=== PATIENT | female | born 1960 | race Caucasian/White ===

== ENCOUNTER 2022-01-01 19:15 | Emergency (ER) | payer OTHER, SELFPAY ==
[2022-01-01 19:29] VITALS: BP 131/78; PULSE 88; O2SAT 97
[2022-01-01 19:31] VITALS: BP 131/78; PULSE 94; RESP 18; TEMP 36.3; O2SAT 97; BMI 14.8
--- NOTE | 2022-01-01 19:39 | ED.GENADULT ---
HPI - General Adult General Stated complaint: syncopal Time Seen by Provider: 01/01/22 19:38 Source: EMS Mode of arrival: EMS Limitations: altered mental status History of Present Illness HPI narrative: Patient comes to the emergency room from a [facility] facility. Patient was discharged today from [facility]. Patient was therefore a UTI, completed her course of antibiotics yesterday. Today, when patient was at her new [facility] facility, patient had an absent seizure. Patient did not fall to the ground, did not have tonic clonic seizure. On arrival to the emergency room, patient is at baseline, and noncompliant, refusing treatment. Patient was placed on hospice today. Patient unable to give any history, patient is awake and alert but cannot give any history, yelling that she wants water. Related Data Allergies Allergy/AdvReac Type Severity Reaction Status Date / Time No Known Allergies Allergy Verified 01/01/22 19:39 Review of Systems Review of Systems: Yes Unobtainable due to mental condition PMFSH Past Medical History Medical History (Updated 01/01/22 @ 19:46 by Celina Ron MD) Anxiety Atrial fibrillation COPD (chronic obstructive pulmonary disease) End stage renal disease Hypertension Pulmonary air embolism Social History Social History Patient : No Physical Exam ED Const Other: Appearance: Alert. Oriented X1 arguing with everybody Eyes: Pupils equal, round and reactive to light. ENT: Pharynx normal. Neck: Normal inspection. Neck supple. No lymph nodes noted. No crepitus CVS: Normal heart rate and rhythm. Pulses normal. Normal S1 and S2 Respiratory: No respiratory distress. Breath sounds normal. No Wheezing. No rales Abdomen: Soft and nontender. No rigidity. No distention. Skin: Skin warm and dry. Normal skin color. Normal skin turgor. Extremities: No lower extremity edema. No Lacerations. No Rash Neuro: Moves all extremities, no slurred speech, cranial nerves 2-12 grossly intact, steadily ambulating Psych: Arguing with staff Course Course Course Narrative: Patient has not had any seizure-like activity in the emergency room. Patient was given an additional dose of Keppra in the emergency room. Patient is on hospice for end-stage renal disease and noncompliance. Patient is uncooperative, does not want any blood work, given that the patient is in hospice we will not obtain blood work. Discharge Plan Discharge Clinical Impression: Seizure Patient Disposition: Home, Self-Care Additional Instructions: Please follow-up with your primary care physician tomorrow. If you have any worsening or new symptoms, please return to the emergency room or call 911
[2022-01-01] MEDS: levETIRAcetam 500 MG TABLET PO (20:08)
--- NOTE | 2022-01-01 20:08 | PC.NURSE ---
pt very aggressive, throwing anything she can get her hands on to the floor, pt asking for water and when given threw it at the this rn. security at bedside due to pt getting oob to try to throw more items, room cleaned for any thing she can get her hands on. pt oob and tried to state that staff is assaulting her which is not the case. pt has periods of star and then snapps out of it. pt medicated with keppra po in pudding.
[2022-01-01 21:19] VITALS: BP 156/82; PULSE 92; RESP 16; O2SAT 99
--- NOTE | 2022-01-01 21:39 | PC.NURSE ---
waiting for transport. pt still being demanding and if needs not met in seconds then pt starts to throw water, and anything she can get her hands on. transport approx 0
--- NOTE | 2022-01-01 22:45 | PC.NURSE ---
pt ambulated to the bathroom with staff. pt has her hand to her eyes for a headache.
--- NOTE | 2022-01-01 22:50 | PC.NURSE ---
RN IS AWARE OF PATIENT REFUSAL TO HAVE 2200 VITALS TAKEN ,PATIENT WAS ASSISTED TO THE BATHROOM TIMES 2,PATIENT HAD 2 CUPS OF WATER TO DRINK
[2022-01-01] MEDS: Acetaminophen 325 MG TABLET 650 MG PO (23:38)
[2022-01-02] VITALS: PULSE 90; RESP 16
--- NOTE | 2022-01-02 00:17 | PC.NURSE ---
pt is sleeping, treated for a headache, no seizure activity, pt cooperative now and not throwing things around if needs are not met.
[2022-01-02 01:33] VITALS: RESP 16
--- NOTE | 2022-01-02 02:55 | PC.NURSE ---
pt has been sleeping, food and beverage given, no seizure activity, pt alert and oriented x3
== END 2022-01-02 02:46 | disposition home or self-care (01) ==
LOC: HO.ED 20:03
PROVIDERS: Emergency Provider Emergency Medicine; PCP Physician Assistant Medical
DX: R55 Syncope and collapse (principal)
CPT/HCPCS: 99283; 99284

== ENCOUNTER 2022-01-02 19:15 | Emergency (ER) | payer OTHER, SELFPAY ==
--- NOTE | ~2022-01-02 | CT_ITS ---
EXAMINATION: CT CERVICAL SPINE WITHOUT CONTRAST CLINICAL INFORMATION: Status post fall, neck trauma COMPARISON: None TECHNIQUE: This CT examination was performed using dose optimization techniques as appropriate, variously including the following: *Automated exposure control *Adjustment of mA and/or kV according to patient size (this includes techniques or standardized protocols for targeted exams where dose is matched to indication/reason for exam; i.e. extremities or head) *Use of iterative reconstruction technique DLP: 233.45 mGy-cm FINDINGS: There is no evidence of fracture or subluxations. There are multilevel degenerative changes of cervical spine with narrowing of C4-C5 intervertebral disc space there is no spinal canal stenosis. Soft tissues are unremarkable. There are emphysematous changes in the apices with bullous disease on the right CT/CT cervical spine wo con IMPRESSION: Mild multilevel degenerative changes no fracture or subluxation seen. Fleischner guidelines were followed.
--- NOTE | ~2022-01-02 | CT_ITS ---
EXAMINATION: CT HEAD WITHOUT CONTRAST CLINICAL INFORMATION: 61-year-old female with head trauma COMPARISON: None TECHNIQUE: Contiguous axial imaging was performed from the skull base to vertex without intravenous administration of contrast. This CT examination was performed using dose optimization techniques as appropriate, variously including the following: *Automated exposure control *Adjustment of mA and/or kV according to patient size (this includes techniques or standardized protocols for targeted exams where dose is matched to indication/reason for exam; i.e. extremities or head) *Use of iterative reconstruction technique DLP: 629.17 mGy-cm FINDINGS: There is no evidence of acute intracranial hemorrhage or territorial infarction. No abnormal mass effect or midline shift is seen ventricles and sulci are prominent there is patchy hypodensity surrounding the dilated occipital horn on the right as well as area of calcification in the periventricular white matter. There is no fracture or sinus disease. CT/CT head/brain wo con IMPRESSION: Atrophy and extra-axial dilatation of right occipital horn surrounded by hypodensity is of encephalomalacia. Unclear origin calcification most likely dystrophic in the periventricular white matter. If clinically indicated there are no comparison studies available follow-up by MRI
[2022-01-02 19:33] VITALS: PULSE 85; RESP 22; TEMP 37.1; O2SAT 100; BMI 17.2
[2022-01-02 19:46] VITALS: BP 103/53; PULSE 85; RESP 23; O2SAT 98
--- NOTE | 2022-01-02 20:03 | ED_ITS ---
HPI - Seizure General Chief Complaint: Seizure Stated Complaint: ?Seizure Time Seen by Provider: 01/02/22 23:25 Source: patient and EMS Mode of arrival: EMS Limitations: other History of Present Illness HPI Narrative: 61-year-old female presents via EMS from a [facility] facility after seizure activity and falling at bed. Patient was given Versed on transit for seizure activity. Patient presents in a C-collar. complaint: seizure Onset (ago): hour(s) (Within the hour of arrival) Description of Episode: tonic-clonic movement Witnessed: Yes - by EMS Trauma: Yes Seizure History: Yes Place: longterm facility Possible Precipitating Event: none Associated symptoms: denies other symptoms Treatments prior to arrival: benzodiazepines Related Data Previous Rx's Medication Instructions Recorded cefuroxime axetil 500 mg tablet 500 mg PO Q12H 7 Days #14 tab 01/02/22 Allergies Allergy/AdvReac Type Severity Reaction Status Date / Time No Known Allergies Allergy Verified 01/01/22 19:39 Review of Systems Review of Systems: Constitutional: No Fever, No Chills ENT/Mouth: No Ear Pain, No Hoarseness, No sore throat Eyes: No Eye Pain, No Swelling, No Redness, No Foreign Body Cardiovascular: No Chest Pain, No SOB Respiratory: No Cough, No Dyspnea Gastrointestinal: No Nausea, No Vomiting, No Diarrhea, No abdominal Pain Genitourinary: No Dysuria, No Hematuria Musculoskeletal: No joint pain, No Myalgias, No Joint Swelling Skin: No Skin lacerations, No rash Neuro: Positive seizure activity, No Weakness, No Numbness, No Paresthesias, No Loss of Consciousness, No Dizziness, No Headache Psych: No Anxiety/Panic, No Depression Heme/Lymph: no easy bruising, no Lymphadenopathy Endocrine: No Polyuria, No Polydipsia Yes all other systems are reviewed and are negative [facility] Past Medical History Attestation statement: The following information was validated with the patient. Source: old records reviewed Medical History Anxiety Atrial fibrillation COPD (chronic obstructive pulmonary disease) End stage renal disease Hypertension Pulmonary air embolism Social History Social History Advance Directives: No Physical Exam Vital Signs: Vital Signs: Last Vital Signs Temp 98.7 F 01/02/22 19:33 Pulse 85 01/02/22 21:11 Resp 21 H 01/02/22 21:11 BP 118/60 01/02/22 21:11 Pulse Ox 100 01/02/22 21:11 BMI result Body Mass Index 17.2 Appearance: Alert. Oriented to self. Requires constant redirection. No acute distress. Able to follow commands that are simple. Eyes: Pupils equal, round and reactive to light. ENT: Pharynx normal. Neck: Normal inspection. Neck supple. CVS: Normal heart rate and rhythm. Pulses normal. Respiratory: No respiratory distress. Breath sounds normal. Abdomen: Soft and nontender. Skin: Skin warm and dry. Normal skin color. Normal skin turgor. Extremities: No lower extremity edema. Moves all extremities. Gait not assessed for safety. Neuro: No motor deficit. No sensory deficit. Cranial nerves 2-12 intact. Course Course Course Narrative: 61-year-old female presents via EMS for injury sustained from a fall after seizure activity. Patient is belligerent, stating that she does not want any tests done. She is on hospice, and was evaluated at this facility yesterday for similar circumstances. Patient has agreed to CT scan of head and neck but declines labs and urinalysis. Patient's wishes were respected. 21:24 CT scan is negative for acute findings requiring emergent intervention. Plan is care is to discharge back to snf facility. 23:34 we were able to obtain a urine. Urinalysis is positive. Discussion with facility, patient is not on any antibiotics even though there is a documented UTI from [facility] approximately 2 days ago. Will treat that with cefuroxime 500 mg twice a day for the next 7 days. MDM - Seizure MDM Narrative Medical decision making narrative: UTI Differential Diagnosis Differential diagnosis: Likely focal seizure and epileptic seizure Medical Records Attestation: I reviewed the patient's medical records. Lab Data Labs: Lab Results 01/02/22 Range/Units 22:40 Urine Color YELLOW Urine Appearance HAZY Urine pH 6.0 (5.0-8.0) Ur Specific [place] 1.010 (1.005-1.025) Urine Protein 1+ H (NEG-TRACE) MG/DL Urine Glucose (UA) NEG (NEG) MG/DL Urine Ketones NEG (NEG) MG/DL Urine Blood TRACE (NEG) Urine Nitrite NEG (NEG) Ur Leukocyte Esterase 2+ H (NEG) Urine RBC 1-4 (0) /HPF Urine WBC 30-49 H (0-4) /HPF Urine WBC Clumps NOTED Ur Squamous Epith Cells TRACE /LPF Urine Bacteria 4+ /LPF Urine Mucus TRACE /LPF Imaging Data CT head neck: Attestation: I personally reviewed and interpreted this imaging study as follows: Radiologist's impression: DLP: 629.17 mGy-cm FINDINGS: There is no evidence of acute intracranial hemorrhage or territorial infarction. No abnormal mass effect or midline shift is seen ventricles and sulci are prominent there is patchy hypodensity surrounding the dilated occipital horn on the right as well as area of calcification in the periventricular white matter. There is no fracture or sinus disease. CT/CT head/brain wo con IMPRESSION: Atrophy and extra-axial dilatation of right occipital horn surrounded by hypodensity is of encephalomalacia. Unclear origin calcification most likely dystrophic in the periventricular white matter. If clinically indicated there are no comparison studies available follow-up by MRI FINDINGS: There is no evidence of fracture or subluxations. There are multilevel degenerative changes of cervical spine with narrowing of C4-C5 intervertebral disc space there is no spinal canal stenosis. Soft tissues are unremarkable. There are emphysematous changes in the apices with bullous disease on the right CT/CT cervical spine wo con IMPRESSION: Mild multilevel degenerative changes no fracture or subluxation seen.? ? Fleischner guidelines were followed. Discharge Plan Discharge Clinical Impression: Seizure, Fall, UTI (urinary tract infection) Patient Disposition: Xfer SNF Transfer Details: [facility] Additional Instructions: You were evaluated for seizure activity and fall. CT scan of head and cervical spine are negative for acute findings requiring emergent intervention. Please take your medications as directed. Urinalysis positive for UTI. Please take cefuroxime 500 mg every 12 hours for the next 7 days. Thank you for choosing this emergency department for evaluation. Please follow-up with primary care physician as needed. Return to the emergency department for any new, concerning, or worsening symptoms. Prescriptions: New cefuroxime axetil 500 mg tablet 500 mg PO Q12H 7 Days Qty: 14 0RF
--- NOTE | 2022-01-02 20:28 | PC.NURSE ---
Patient A&OX3, calm and cooperative. VSS. Awaiting CT results. C-collar remains in place.
[2022-01-02 21:11] VITALS: BP 118/60; PULSE 85; RESP 21; O2SAT 100
--- NOTE | 2022-01-02 21:15 | PC.NURSE ---
Per ana Fletchre to remove xiang voss. VSS
--- NOTE | 2022-01-02 22:22 | PC.NURSE ---
Patient discharged per MD order, awaiting ambulance transport back to [facility]. Report given to ANKIT Abraham at [place]. Patient VSS
[2022-01-02 22:46] LABS: Appearance Urine HAZY; Color Urine YELLOW; Glucose Urine UA NEG (NEG); Leukocyte Esterase Urine 2+ (NEG); Nitrite Urine NEG (NEG); UACC Culture Trigger YES; Urine Blood TRACE (NEG); Urine Ketones NEG (NEG); Urine Protein 1+ MG/DL (NEG-TRACE)
[2022-01-02 22:52] LABS: Bacteria Urine 4+ /LPF; Mucus Urine TRACE /LPF; Squamous Epithelial Cell Urine TRACE /LPF; WBC Clumps Urine NOTED; WBC Urine 30-49 /HPF (0-4)
[2022-01-02 23:38] VITALS: BP 118/85; PULSE 63; RESP 16; TEMP 36.6; O2SAT 98
[2022-01-02] MEDS: LORazepam 1 MG TABLET PO (23:41)
[2022-01-03 00:34] VITALS: PULSE 62; RESP 14; O2SAT 95
[2022-01-03 01:43] VITALS: BP 133/70; PULSE 96; RESP 20; TEMP 36.6; O2SAT 95
--- NOTE | 2022-01-03 02:05 | PC.NURSE ---
Patient discharged, on EMS stretcher. Per EMS, patient's jaw shaking and patient not answering questions, concerns for possible seizure activity. EMS states lasted 1 minute at 01:47 am. Patient back to baseline status and Justine Gómez NP notified. No new meds at this time. Ok to discharge back to facility.
== END 2022-01-03 01:45 | disposition skilled nursing facility (03) ==
PROVIDERS: Nurse Practitioner Family; Emergency Provider Emergency Medicine Emergency Medical Services; PCP Internal Medicine
DX: R56.9 Unspecified convulsions (principal); N39.0 Urinary tract infection, site not specified; I12.0 Hypertensive chronic kidney disease with stage 5 chronic kidney disease or end stage renal disease; N18.6 End stage renal disease; J44.9 Chronic obstructive pulmonary disease, unspecified; I48.91 Unspecified atrial fibrillation; Z86.711 Personal history of pulmonary embolism; Z91.81 History of falling
CPT/HCPCS: 70450; 72125; 81001; 87086; 87088; 87186; 99284; 99285

== ENCOUNTER 2022-01-03 21:42 | Emergency (ER) | payer OTHER, SELFPAY ==
--- NOTE | ~2022-01-03 | CT_ITS ---
EXAMINATION: CT HEAD WITHOUT CONTRAST CLINICAL INFORMATION: Recurrent frequent seizures. COMPARISON: 01/02/2022 TECHNIQUE: Contiguous axial imaging was performed from the skull base to vertex without intravenous administration of contrast. This CT examination was performed using dose optimization techniques as appropriate, variously including the following: *Automated exposure control *Adjustment of mA and/or kV according to patient size (this includes techniques or standardized protocols for targeted exams where dose is matched to indication/reason for exam; i.e. extremities or head) *Use of iterative reconstruction technique DLP: 863 mGy-cm FINDINGS: There is no evidence of acute intracranial hemorrhage or territorial infarction. No abnormal mass effect or midline shift is seen. [place] to white matter differentiation is well preserved. No extra-axial fluid collections are identified. The ventricles are normal in size. Stable regions of encephalomalacia within the right posterior temporal, right parietal and right occipital lobe with associated gliosis and coarse calcification adjacent to the ventricular atrium suspected to be dystrophic in nature. Lack of associated mass effect makes the possibility of an underlying mass unlikely. Extensive patchy subcortical and periventricular white matter low-attenuation changes redemonstrated statistically related to chronic white matter small vessel ischemic disease. Chronic appearing bilateral gangliocapsular lacunar infarcts redemonstrated as well. The osseous structures and soft tissues are normal. The mastoid air cells and visualized portions of the paranasal sinuses are well aerated. CT/CT head/brain wo con IMPRESSION: * No acute intracranial pathology. 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
--- NOTE | 2022-01-03 21:58 | ED_ITS ---
HPI - Seizure General Chief Complaint: Seizure <Jsutine Robert NP - Last Filed: 01/04/22 01:45> Stated Complaint: seizure <Justine Robert NP - Last Filed: 01/04/22 01:45> Time Seen by Provider: 01/04/22 04:58 <Justine Robert NP - Last Filed: 01/04/22 01:45> Source: patient and EMS <Justine Robert NP - Last Filed: 01/04/22 01:45> Mode of arrival: EMS <Justine Robert NP - Last Filed: 01/04/22 01:45> History of Present Illness HPI Narrative: 61-year-old female presents via EMS for seizure activity. Nurse at intermediate facility stated that she is unable to get medications into her and would like us to give her IV Keppra or IV doxycycline. <Justine Robert NP - Last Filed: 01/04/22 01:45> MD complaint: seizure <Justine Robert NP - Last Filed: 01/04/22 01:45> Description of Episode: tonic-clonic movement <Justine Robert NP - Last Filed: 01/04/22 01:45> Witnessed: Yes - by Bystander <Justine Robert NP - Last Filed: 01/04/22 01:45> Trauma: No <Justine Robert NP - Last Filed: 01/04/22 01:45> Seizure History: Yes <Justine Robert NP - Last Filed: 01/04/22 01:45> Place: long-term facility <Justine Robert NP - Last Filed: 01/04/22 01:45> Possible Precipitating Event: none <Justine Robert NP - Last Filed: 01/04/22 01:45> Associated symptoms: denies other symptoms <Justine Robert NP - Last Filed: 01/04/22 01:45> Treatments prior to arrival: none <Justine Robert NP - Last Filed: 01/04/22 01:45> Related Data Home Medications: Previous Rx's Medication Instructions Recorded cefuroxime axetil 500 mg tablet 500 mg PO Q12H 7 Days #14 tab 01/02/22 <Justine Robert NP - Last Filed: 01/04/22 01:45> Allergies/Adverse Reactions: Allergies Allergy/AdvReac Type Severity Reaction Status Date / Time No Known Allergies Allergy Verified 01/01/22 19:39 <Justine Robert NP - Last Filed: 01/04/22 01:45> Review of Systems Review of Systems: Constitutional: No Fever, No Chills ENT/Mouth: No Ear Pain, No Hoarseness, No sore throat Eyes: No Eye Pain, No Swelling, No Redness, No Foreign Body Cardiovascular: No Chest Pain, No SOB Respiratory: No Cough, No Dyspnea Gastrointestinal: No Nausea, No Vomiting, No Diarrhea, No abdominal Pain Genitourinary: No Dysuria, No Hematuria Musculoskeletal: No joint pain, No Myalgias, No Joint Swelling Skin: No Skin lacerations, No rash Neuro: No Weakness, No Numbness, No Paresthesias, No Loss of Consciousness, No Dizziness, No Headache Psych: No Anxiety/Panic, No Depression Heme/Lymph: no easy bruising, no Lymphadenopathy Endocrine: No Polyuria, No Polydipsia <Justine Robert NP - Last Filed: 01/04/22 01:45> Yes all other systems are reviewed and are negative <Justine Robert NP - Last Filed: 01/04/22 01:45> PMF Past Medical History Attestation statement: The following information was validated with the patient. <NAREN Coats Last Filed: 01/04/22 01:45> Source: old records reviewed <Justine Robert NP - Last Filed: 01/04/22 01:45> Medical History: Medical History Anxiety Atrial fibrillation COPD (chronic obstructive pulmonary disease) End stage renal disease Hypertension Pulmonary air embolism <NAREN Coats Last Filed: 01/04/22 01:45> Social History Social History: Social History Alcohol intake: never Patient Tobacco Use Status: Never used Tobacco Use of substances other than those prescribed or required for medical reasons: No Advance Directives: No Advance Directives Information Provided: No Patient : No <Justine Robert NP - Last Filed: 01/04/22 01:45> Physical Exam Vital Signs: Vital Signs: Last Vital Signs Temp 98.3 F 01/03/22 22:29 Pulse 94 01/04/22 05:12 Resp 16 01/04/22 05:12 BP 131/70 01/04/22 05:12 Pulse Ox 98 01/04/22 05:12 BMI result Body Mass Index 44.0 <Justine Robert NP - Last Filed: 01/04/22 01:45> Vital Signs: Last Vital Signs Temp 98.3 F 01/03/22 22:29 Pulse 94 01/04/22 05:12 Resp 16 01/04/22 05:12 BP 131/70 01/04/22 05:12 Pulse Ox 98 01/04/22 05:12 BMI result Body Mass Index 44.0 <Patricia Sanchez MD - Last Filed: 01/04/22 06:54> Appearance: Alert. Oriented. No acute distress. Eyes: Pupils equal, round and reactive to light. ENT: Pharynx normal. Neck: Normal inspection. Neck supple. CVS: Normal heart rate and rhythm. Pulses normal. Respiratory: No respiratory distress. Breath sounds normal. Abdomen: Soft and nontender. Skin: Skin warm and dry. Normal skin color. Normal skin turgor. Extremities: No lower extremity edema. Moves all extremities. Neuro: No motor deficit. No sensory deficit. No focal neural deficits. <Justine Robert NP - Last Filed: 01/04/22 01:45> Course Course Course Narrative: 61-year-old female presents via EMS to this facility for seizure activity. This is the 3rd presentation in 3 days for similar circumstances. Multiple discussions with the RNs at her facility states that they were unable to give her medications due to noncompliance as well as seizure activity. They are requesting that we give her IV medications. Discussion regarding appropriate use of the ED and level of care that is provided at the facility that she r esides at. This [employer] evaluated patient yesterday for seizure disorder and fall. Had a negative CT scan. Urinalysis was positive for UTI in which I prescribed cefuroxime 500 mg twice a day. The facility that she resides that stated that they were unable to give her any medications today. Patient took her medications last night at this facility by mouth without any difficulty. This [employer] was present during medication administration last night, 01/02/2022. Unfortunately, we are unable to get an ambulance to transport this patient back to her facility until 09:00 on 01/04/2022. We will give ceftriaxone IV for her UTI and Keppra IV. Patient is not having any seizure activity. Patient is resting comfortably, even unlabored respirations, and is compliant with care at this time. Plan of care is to discharge to intermediate facility in the morning. <uJstine Robert NP - Last Filed: 01/04/22 01:45> Reevaluation(s) Reevaluation #1: Patient continue with this several episodes seizures, so decision was made to repeat this CT of the head as well as obtaining basic lab work. In patient's history she is noted to refuse dialysis, refused lab work, and refuse medications. She agreed to low lab work here and she has received a total of 2 mg of Ativan with complete resolution of her seizures. During her stay she did receive antibiotics as well as her anti seizure medication which I suspect is likely subtherapeutic. No further intervention is indicated at this time and all lab work was reviewed and is consistent with patient refusing medical treatment for her underlying conditions. She remains clinically stable for discharge back to the long-term care facility and should receive her medications if at all possible. <Patricia Sanchez MD - L ast Filed: 01/04/22 06:54> Time: 06:51 <Patricia Sanchez MD - Last Filed: 01/04/22 06:54> MDM - Seizure Differential Diagnosis Differential diagnosis: Likely generalized seizure <Justine Robert NP - Last Filed: 01/04/22 01:45> Medical Records Attestation: I reviewed the patient's medical records. <Justine Robert NP - Last Filed: 01/04/22 01:45> Lab Data Result diagrams: : 01/04/22 06:24 01/04/22 06:24 <Justine Robert NP - Last Filed: 01/04/22 01:45> Labs: Lab Results 01/04/22 01/04/22 Range/Units 06:24 06:24 WBC 5.5 (4.8-10.8) X10*3/uL RBC 2.84 L (4.20-5.50) X10*6/uL Hgb 9.4 L (12.0-16.0) g/dl Hct 30.2 L (37.0-47.0) % MCV 106.3 H (80.0-98.0) fL MCH 33.1 H (27.0-33.0) pg MCHC 31.1 (31.0-35.0) g/dl RDW 14.6 (11.0-16.0) % Plt Count 137 L (160-400) X10*3/uL MPV 9.2 L (9.4-12.3) fL Immature Gran % (Auto) 0.2 (0.0-0.4) % Neut % (Auto) 58.6 (45-73) % Lymph % (Auto) 23.0 (20-40) % [place] % (Auto) 14.6 H (2-11) % Eos % (Auto) 2.7 (0-4) % Baso % (Auto) 0.9 (0-2) % Lymph # (Auto) 1.3 (1.2-4.9) X10*3/uL [place] # (Auto) 0.8 (0.1-1.2) X10*3/uL Eos # (Auto) 0.2 (0.0-0.4) X10*3/uL Baso # (Auto) 0.1 (0.0-0.2) X10*3/uL Abs Immat Gran (auto) 0.01 (0.00-0.03) X10*3/uL Absolute Neuts (auto) 3.2 (2.0-8.3) x10*3/uL Absolute Nucleated RBC 0.000 (0.0-0.012) X10*3/uL Nucleated RBC % (auto) 0.0 (0.0-0.2) /100WBC Sodium 138 (135-145) mmol/L Potassium 4.6 (3.3-5.1) mmol/L Chloride 113 H (96-108) mmol/L Carbon Dioxide 15 L (22-29) mmol/L Anion Gap 15 (12-20) BUN 52 H (9-16) mg/dL Creatinine 3.54 H (0.5-1.4) mg/dL Estim Creat Clear Calc 21.3 Estimated GFR 13 Random Glucose 84 (60-115) mg/dL Calcium 8.9 (8.4-10.2) mg/dL Total Bilirubin 0.4 (0.0-1.0) mg/dL AST 25 (5-31) U/L ALT 19 (0-31) U/L Alkaline Phosphatase 53 (39-117) U/L Total Protein 6.0 L (6.5-8.0) g/dL Albumin 3.4 L (3.5-5.0) g/dL <Justine Robert NP - Last Filed: 01/04/22 01:45> Lab Results 01/04/22 01/04/22 Range/Units 06:24 06:24 WBC 5.5 (4.8-10.8) X10*3/uL RBC 2.84 L (4.20-5.50) X10*6/uL Hgb 9.4 L (12.0-16.0) g/dl Hct 30.2 L (37.0-47.0) % MCV 106.3 H (80.0-98.0) fL MCH 33.1 H (27.0-33.0) pg MCHC 31.1 (31.0-35.0) g/dl RDW 14.6 (11.0-16.0) % Plt Count 137 L (160-400) X10*3/uL MPV 9.2 L (9.4-12.3) fL Immature Gran % (Auto) 0.2 (0.0-0.4) % Neut % (Auto) 58.6 (45-73) % Lymph % (Auto) 23.0 (20-40) % [place] % (Auto) 14.6 H (2-11) % Eos % (Auto) 2.7 (0-4) % Baso % (Auto) 0.9 (0-2) % Lymph # (Auto) 1.3 (1.2-4.9) X10*3/uL [place] # (Auto) 0.8 (0.1-1.2) X10*3/uL Eos # (Auto) 0.2 (0.0-0.4) X10*3/uL Baso # (Auto) 0.1 (0.0-0.2) X10*3/uL Abs Immat Gran (auto) 0.01 (0.00-0.03) X10*3/uL Absolute Neuts (auto) 3.2 (2.0-8.3) x10*3/uL Absolute Nucleated RBC 0.000 (0.0-0.012) X10*3/uL Nucleated RBC % (auto) 0.0 (0.0-0.2) /100WBC Sodium 138 (135-145) mmol/L Potassium 4.6 (3.3-5.1) mmol/L Chloride 113 H (96-108) mmol/L Carbon Dioxide 15 L (22-29) mmol/L Anion Gap 15 (12-20) BUN 52 H (9-16) mg/dL Creatinine 3.54 H (0.5-1.4) mg/dL Estim Creat Clear Calc 21.3 Estimated GFR 13 Random Glucose 84 (60-115) mg/dL Calcium 8.9 (8.4-10.2) mg/dL Total Bilirubin 0.4 (0.0-1.0) mg/dL AST 25 (5-31) U/L ALT 19 (0-31) U/L Alkaline Phosphatase 53 (39-117) U/L Total Protein 6.0 L (6.5-8.0) g/dL Albumin 3.4 L (3.5-5.0) g/dL <Patricia Sanchez MD - Last Filed: 01/04/22 06:54> Discharge Plan Discharge Clinical Impression: Epileptic seizure, UTI (urinary tract infection) <Justine Robert NP - Last Filed: 01/04/22 01:45> Patient Disposition: Xfer [facility] <Justine Robert NP - Last Filed: 01/04/22 01:45> Transfer Details: [facility] <Justine Robert NP - Last Filed: 01/04/22 01:45> [facility] <Patricia Sanchez MD - Last Filed: 01/04/22 06:54> Additional Instructions: Please continue all medications as previously prescribed. Thank you for choosing this emergency department for evaluation. Please follow-up with primary care physician as needed. Return to the emergency department for any new, concerning, or worsening symptoms. <Justine Robert NP - Last Filed: 01/04/22 01:45> Prescriptions: No Action cefuroxime axetil 500 mg tablet 500 mg PO Q12H 7 Days Qty: 14 0RF <Justine Robert NP - Last Filed: 01/04/22 01:45>
[2022-01-03 22:00] VITALS: BP 118/65; PULSE 107; PULSE 92; RESP 16; TEMP 37; O2SAT 98; BMI 44.0
[2022-01-03 22:29] VITALS: BP 135/68; PULSE 77; RESP 16; TEMP 36.8; O2SAT 98
[2022-01-03] MEDS: cefTRIAXone sodium 1 GM in 0.9 % Sodium Chloride 50 ML IV (23:40)
[2022-01-04] MEDS: levETIRAcetam in NaCl (iso-os) 500 MG/100 ML PIGGYBACK 400 MG IV (00:28)
[2022-01-04 00:29] VITALS: RESP 16
[2022-01-04] MEDS: LORazepam 2 MG/ML VIAL 1 MG IVPUSH ×2 (05:01→05:44)
[2022-01-04] MEDS: Acetaminophen 325 MG TABLET 975 MG PO (05:05)
[2022-01-04 05:12] VITALS: BP 131/70; PULSE 94; RESP 16; O2SAT 98
--- NOTE | 2022-01-04 05:14 | PC.NURSE ---
pt had 2 15-30 second seizures with wincing of the face, drooling, rigid muscles. Pt oriented x3 swears at staff fuck you get me my... coat, blanket,medicine, bedpan.Pt resistive to care, when offered bedpan pt refused multiple times until medicine as goten, pt refused after medicine was give. Pt rambles aabout non-sense or unrelated events. Pt was given 1mg ativan and tylenol for headches.
--- NOTE | 2022-01-04 06:14 | PC.NURSE ---
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 They will attempt to draw.
[2022-01-04 06:29] LABS: Basophils Absolute Auto 0.1 X10*3/uL (0.0-0.2); Basophils Percent Auto 0.9 % (0-2); Eosinophils Absolute Auto 0.2 X10*3/uL (0.0-0.4); Eosinophils Percent Auto 2.7 % (0-4); Hematocrit 30.2 % (37.0-47.0); Hemoglobin 9.4 g/dl (12.0-16.0); Imm Gran Abs Auto 0.01 X10*3/uL (0.00-0.03); Imm Gran Pct Auto 0.2 % (0.0-0.4); Lymphocytes Absolute Auto 1.3 X10*3/uL (1.2-4.9); MANUAL DIFF FLAG NO; Mean Corpuscular HGB Conc 31.1 g/dl (31.0-35.0); Mean Corpuscular Hemoglobin 33.1 pg (27.0-33.0); Mean Corpuscular Volume 106.3 fL (80.0-98.0); Mean Platelet Volume 9.2 fL (9.4-12.3); Monocytes Absolute Auto 0.8 X10*3/uL (0.1-1.2); Monocytes Percent Auto 14.6 % (2-11); Neutrophils Absolute Auto 3.2 x10*3/uL (2.0-8.3); Neutrophils Percent Auto 58.6 % (45-73); Platelet Count 137 X10*3/uL (160-400); Red Blood Count 2.84 X10*6/uL (4.20-5.50); Red Cell Distribution Width 14.6 % (11.0-16.0); White Blood Count 5.5 X10*3/uL (4.8-10.8)
[2022-01-04 06:45] LABS: Alanine Aminotransferase 19 U/L (0-31); Albumin Level 3.4 g/dL (3.5-5.0); Alkaline Phosphatase 53 U/L (39-117); Anion Gap 15 (12-20); Aspartate Amino Transferase 25 U/L (5-31); Bilirubin Total 0.4 mg/dL (0.0-1.0); Blood Urea Nitrogen 52 mg/dL (9-16); Calcium 8.9 mg/dL (8.4-10.2); Carbon Dioxide 15 mmol/L (22-29); Chloride 113 mmol/L (96-108); Creatinine Clr Calc Pharmacy 21.3; Estimated Glomerular Filt Rate 13; Glucose Random 84 mg/dL (60-115); Potassium 4.6 mmol/L (3.3-5.1); Sodium 138 mmol/L (135-145)
[2022-01-04 08:00] VITALS: BP 120/61; PULSE 76; RESP 16; TEMP 36.9; O2SAT 100
[2022-01-04 08:45] VITALS: BP 143/70; PULSE 68; RESP 18; O2SAT 100
--- NOTE | 2022-01-04 09:14 | PC.NURSE ---
pt d/c via ambulance. this rn tried multi times to give rn to rn report without any success. voice message left.
[2022-01-09 08:11] LABS: Levetiracetam Keppra 26.1 mcg/mL (12.0-46.0)
== END 2022-01-04 09:20 | disposition skilled nursing facility (03) ==
PROVIDERS: Student in an Organized Health Care Education/Training Program; Emergency Provider Emergency Medicine Emergency Medical Services
DX: G40.909 Epilepsy, unspecified, not intractable, without status epilepticus (principal); N39.0 Urinary tract infection, site not specified; I48.91 Unspecified atrial fibrillation; I12.0 Hypertensive chronic kidney disease with stage 5 chronic kidney disease or end stage renal disease; N18.6 End stage renal disease; Z86.711 Personal history of pulmonary embolism; Z91.14 Patient's other noncompliance with medication regimen
CPT/HCPCS: 36415; 70450; 80053; 80177; 85025; 96365; 96375; 96376; 99284; J0696; J1953; J2060